=== PATIENT | female | born 1960 | race Caucasian/White ===

== ENCOUNTER 2017-12-16 12:19 | Emergency (ER) | payer MEDICAID ==
[~2017-12-16] VITALS: Ht 157.5 cm; Wt 90.7 kg
[~2017-12-16 12:19] MED LIST: Bactrim Ds Tab1 EACH PO; CLOT1TC TOP; METPRE4DP PO; Nasonex17 GM; PSEU120ER PO; Zithromax250 MG PO
[2017-12-16] MEDS ORDERED: CEFP200 PO (12:38)
[2017-12-16] MEDS ORDERED: IBUP600 PO (12:38)
== END 2017-12-16 12:47 | disposition home or self-care (01) ==
LOC: ER 12:19
DX: H66.93 Otitis media, unspecified, bilateral (principal); F17.210 Nicotine dependence, cigarettes, uncomplicated
CPT/HCPCS: 99283

== ENCOUNTER 2018-01-17 13:08 | Emergency (ER) | payer OTHER ==
[~2018-01-17] VITALS: Ht 154.9 cm; Wt 99.8 kg
[~2018-01-17 13:08] MED LIST changes: +CEFP200 PO; +IBUP600 PO
[2018-01-17 15:25] LABS: BASOPHILS ABSOLUTE AUTO 0.06 K/mm3 (0.00-0.23); BASOPHILS PERCENT AUTO 0 % (0-2); EOSINOPHILS ABSOLUTE AUTO 0.08 K/mm3 (0.00-0.68); EOSINOPHILS PERCENT AUTO 1 % (0-6); Hematocrit 44.5 % (33.0-51.0); Hemoglobin 15.1 g/dL (11.5-16.0); IMMATURE GRAN ABSOLUTE AUTO 0.08 K/mm3 (0.00-0.10); IMMATURE GRAN PERCENT AUTO 1 % (0-1); LYMPHOCYTES ABSOLUTE AUTO 2.09 K/mm3 (0.84-5.20); LYMPHOCYTES PERCENT AUTO 15 % (21-46); MONOCYTES ABSOLUTE AUTO 0.81 K/mm3 (0.16-1.47); MONOCYTES PERCENT AUTO 6 % (4-13); Mean Corpuscular HGB 30.3 pg (26.0-34.0); Mean Corpuscular HGB Conc 33.9 g/dL (31.5-36.5); Mean Corpuscular Volume 89 fL (80-100); NEUTROPHILS ABSOLUTE AUTO 11.34 K/mm3 (1.96-9.15); NEUTROPHILS PERCENT AUTO 78 % (41-73); RDW Coefficient Variation 12.9 % (11.7-14.2); Red Blood Cell Count 4.99 M/mm3 (3.80-5.20); White Blood Cell Count 14.46 K/mm3 (4.00-11.30)
[2018-01-17 15:36] LABS: Mean Platelet Volume 9.4 fL (9.1-12.4); Platelet Count 200 K/mm3 (150-400)
[2018-01-17 15:41] LABS: Alanine Aminotransfer (ALT/SGP 138 U/L (12-78); Albumin, Blood 3.4 g/dL (3.4-5.0); Albumin/Globulin Ratio 0.9 (0.8-1.8); Alk Phos 90 U/L (50-136); Anion Gap 8 mmol/L (6-16); Aspartate Aminotrans (AST/SGOT 188 U/L (12-37); Bilirubin, Total 1.7 mg/dL (0.1-1.0); Blood Urea Nitrogen 16 mg/dL (8-24); Bun/Creatinine Ratio 34.7 (12.0-20.0); CO2, Blood 24 mmol/L (21-32); Calcium, Blood 8.6 mg/dL (8.5-10.1); Chloride, Blood 109 mmol/L (98-108); Creatinine, Blood 0.46 mg/dL (0.40-1.00); Globulin, Blood 3.8 g/dL (2.2-4.0); Glomerular Filtration Rate >60 (60-); Glucose, Blood 120 mg/dL (70-99); Potassium, Blood 4.4 mmol/L (3.5-5.5); Sodium, Blood 141 mmol/L (136-145); Total Protein, Blood 7.2 g/dL (6.4-8.2)
== END 2018-01-17 20:10 | disposition short-term general hospital (02) ==
LOC: ER 13:08
PROVIDERS: Emergency Medicine
DX: K80.50 Calculus of bile duct without cholangitis or cholecystitis without obstruction (principal); F17.210 Nicotine dependence, cigarettes, uncomplicated
CPT/HCPCS: 36415; 76705; 80053; 83690; 85025; 96360; 96361; 99285-25; J7030

== ENCOUNTER 2021-04-02 22:50 | Emergency (ER) | payer MEDICARE, OTHER ==
[~2021-04-02] VITALS: Ht 154.9 cm; Wt 113.4 kg
[2021-04-03] MEDS ORDERED: ONDA4ODT MM (00:21)
[2021-04-03] MEDS ORDERED: Norco 5-325 Ta1 EACH PO (00:21)
== END 2021-04-03 00:45 | disposition home or self-care (01) ==
LOC: ER 22:50
DX: S42.252A Displaced fracture of greater tuberosity of left humerus, initial encounter for closed fracture (principal); S42.212A Unspecified displaced fracture of surgical neck of left humerus, initial encounter for closed fracture; S80.211A Abrasion, right knee, initial encounter; W18.30XA Fall on same level, unspecified, initial encounter
CPT/HCPCS: 29105; 73030; 73562-RT; 96374; 96375; 99283-25; A9270; J1170; J2405